=== PATIENT | female | born 1995 | race Caucasian/White ===

== ENCOUNTER 2019-08-31 12:57 | Emergency (ER) | payer OTHER ==
[~2019-08-31] VITALS: Ht 167.6 cm; Wt 46.7 kg
[2019-08-31 13:08] VITALS: Ht 167.6 cm; Wt 46.7 kg
[2019-08-31 13:53] VITALS: BP 114/79
== END 2019-08-31 14:26 | disposition home or self-care (01) ==
LOC: ED 12:57
DX: O20.0 Threatened abortion (principal); F41.9 Anxiety disorder, unspecified; F32.9 Major depressive disorder, single episode, unspecified

== ENCOUNTER 2019-09-02 18:38 | Emergency (ER) | payer OTHER ==
[~2019-09-02] VITALS: Ht 167.6 cm; Wt 47.6 kg
[2019-09-02 18:49] VITALS: BP 121/73; Ht 167.6 cm; Wt 47.6 kg
== END 2019-09-02 20:17 | disposition home or self-care (01) ==
LOC: ED 18:38
DX: O20.0 Threatened abortion (principal); O02.81 Inappropriate change in quantitative human chorionic gonadotropin (hCG) in early pregnancy; O99.341 Other mental disorders complicating pregnancy, first trimester; F41.8 Other specified anxiety disorders
CPT/HCPCS: 36415